=== PATIENT | male | born 1985 | race African-American/Black ===

== ENCOUNTER 2021-11-17 05:58 | Inpatient (IN) | payer OTHER ==
[2021-11-17] MEDS ORDERED: ACETAMINOPHEN 1000 MG/100 ML BAG IVPB ONE (06:04)
[2021-11-17] MEDS ORDERED: LACTATED RINGERS SOLUTION 1000 ML INFUS.BAG IV ONE (06:04)
[2021-11-17] MEDS ORDERED: morphine SULFATE 4 MG/ML VIAL IVPUSH ONE (06:04)
[2021-11-17 06:05] VITALS: BMI 30.7
[2021-11-17] MEDS ORDERED: MAG HYDROX/AL HYDROX/SIMETH 30 ML UNIT-DOSE CUP PO ONE (06:05)
[2021-11-17] MEDS ORDERED: FAMOTIDINE 20 MG/50 ML IVPB 20 MG/50 ML MG IVPB ONE ×2 (06:05→06:14)
[2021-11-17] MEDS ORDERED: morphine SULFATE 4 MG/ML VIAL ONE (06:13)
[2021-11-17] MEDS ORDERED: MAG HYDROX/AL HYDROX/SIMETH 30 ML UNIT-DOSE CUP ONE (06:14)
[2021-11-17] MEDS ORDERED: ACETAMINOPHEN INJECTION 100 ML IVPB ONE (06:14)
[2021-11-17 06:53] LABS: INR 0.97 (0.83-1.09); PROTHROMBIN TIME (PATIENT) 11.2 SEC (9.7-13.0)
[2021-11-17 06:56] LABS: ACTIVATED PTT 21.7 SECONDS (25.2-36.5)
[2021-11-17 07:01] LABS: CHLORIDE 72 mmol/L (98-107)
[2021-11-17 07:03] LABS: CALCIUM 8.1 mg/dL (8.5-10.1)
[2021-11-17 07:04] LABS: BLOOD UREA NITROGEN 21.5 mg/dL (7-18); CO2 6 mmol/L (21-32)
[2021-11-17 07:05] LABS: HEMATOCRIT 38.8 % (35.4-49); HEMOGLOBIN 11.9 GM/dL (11.7-16.9); MCHC 30.6 g/dl (32.0-35.9); MEAN CELL VOLUME 97.9 fl (80-96); MEAN PLT VOLUME 8.3 fl (7.5-11.1); PLATELET COUNT 405 10^3/uL (134-434); RBC 3.97 M/mm3 (4.00-5.60); RDW 15.4 % (11.9-15.9)
[2021-11-17] MEDS ORDERED: CALCIUM GLUCONATE 10% - 1,000 MG/10 ML VIAL IVPB ONE (07:06)
[2021-11-17 07:07] LABS: CREATININE 2.1 mg/dL (0.55-1.3); SGOT/AST 29 U/L (15-37); SGPT/ALT 39 U/L (13-61)
[2021-11-17 07:08] LABS: BILIRUBIN,TOTAL 0.9 mg/dL (0.2-1); TOT PROT 6.6 g/dl (6.4-8.2)
[2021-11-17] MEDS ORDERED: INSULIN REGULAR HUMAN 100 UNITS/ML *VIAL IVPUSH ONE (07:08)
[2021-11-17] MEDS ORDERED: DEXTROSE 50%-WATER - 25 GM/50 ML VIAL IVPUSH ONE (07:09)
[2021-11-17 07:10] LABS: ALK PHOS 101 U/L (45-117)
[2021-11-17 07:12] LABS: ANION GAP 36 MMOL/L (8-16); GLUCOSE,RANDOM 953 mg/dL (74-106); LIPASE 29383 U/L (73-393); SODIUM 114 mmol/L (136-145)
[2021-11-17] MEDS ORDERED: SODIUM CHLORIDE 0.9% 500 ML INFUS.BAG IV ONE (07:19)
[2021-11-17] MEDS ORDERED: PIPERACILLIN/TAZOB 2.25 GM 2.25 GM in DEXTROSE 5%-WATER - 50 ML IVPB ONE (07:23)
[2021-11-17] MEDS ORDERED: SODIUM CHLORIDE 2,994 ML IV ONE (07:26)
[2021-11-17] MEDS ORDERED: PIPERACILLIN/TAZOB 4.5 GM 4.5 GM in DEXTROSE 5%-WATER 100 ML IVPB ONE (07:32)
[2021-11-17] MEDS ORDERED: HYDROmorphone HCL CARPU-JECT 2 MG/1 ML DISP.SYRIN IVPUSH ONE (07:41)
[2021-11-17] MEDS ORDERED: CALCIUM GLUCONATE 10% - 1,000 MG/10 ML VIAL ONE (07:48)
[2021-11-17] MEDS ORDERED: HYDROmorphone HCl 2 MG/ML VIAL ONE (07:48)
[2021-11-17] MEDS ORDERED: DEXTROSE 50%-WATER 25 GM/50 ML DISP.SYRIN ONE (07:48)
[2021-11-17] MEDS ORDERED: PIPERACILLIN/TAZOB 4.5 GM 4.5 GM/100 ML BAG IVPB ONE (07:48)
[2021-11-17] MEDS ORDERED: INSULIN REGULAR HUMAN 100 UNITS/ML *VIAL ONE (07:57)
[2021-11-17 08:39] LABS: ANISOCYTOSIS 1+; MACROCYTOSIS 0; PLATELET ESTIMATE NORMAL
[2021-11-17 09:41] LABS: CHOLESTEROL 277 mg/dL (50-200)
[2021-11-17 09:42] LABS: LDL CHOLESTEROL (ONLY SJRH) 137 mg/dL (5-100); TRIGLYCERIDES 736 mg/dL (0-150)
[2021-11-17 09:44] LABS: HDL CHOLESTEROL 22 mg/dL (40-60)
[2021-11-17] MEDS: INSULIN REGULAR 100 UNITS in SODIUM CHLORIDE 99 ML IVPB SCH ×2 (10:00→16:24)
[2021-11-17 10:29] LABS: CHLORIDE 80 mmol/L (98-107)
[2021-11-17 10:30] LABS: CALCIUM 7.4 mg/dL (8.5-10.1)
[2021-11-17 10:31] LABS: BLOOD UREA NITROGEN 21.6 mg/dL (7-18); CO2 10 mmol/L (21-32)
[2021-11-17 10:34] LABS: CREATININE 1.7 mg/dL (0.55-1.3)
[2021-11-17 10:37] LABS: ANION GAP 26 MMOL/L (8-16); GLUCOSE,RANDOM 952 mg/dL (74-106); SODIUM 116 mmol/L (136-145)
[2021-11-17 11:53] LABS: CHLORIDE 84 mmol/L (98-107)
[2021-11-17 11:55] LABS: BLOOD UREA NITROGEN 20.3 mg/dL (7-18); CALCIUM 7.8 mg/dL (8.5-10.1); CO2 13 mmol/L (21-32)
[2021-11-17 11:59] LABS: CREATININE 1.8 mg/dL (0.55-1.3)
[2021-11-17] MEDS ORDERED: LACTATED RINGERS SOLUTION 1,000 ML/1,000 ML INFUS.BAG IV SCH (12:00)
[2021-11-17 12:02] LABS: ANION GAP 21 MMOL/L (8-16); GLUCOSE,RANDOM 848 mg/dL (74-106); SODIUM 119 mmol/L (136-145)
[2021-11-17] MEDS: MUPIROCIN 2% TOPICAL OINTMENT FOR DECOLONIZATION NS SCH ×2 (12:26→22:01)
[2021-11-17] MEDS: morphine SULFATE 4 MG/ML VIAL IVPUSH PRN ×2 (14:36→22:04)
[2021-11-17 15:58] LABS: VENOUS BASE EXCESS -7.6 mmol/L (-2-2); VENOUS O2 SATURATION 98.9 % (70-80); VENOUS PCO2 28.7 mmHg (38-52); VENOUS PH 7.374 (7.310-7.410)
[2021-11-17] MEDS ORDERED: MEROPENEM 1 GM VIAL (RESTRICTED TO ID) IVPB ONE ×2 (16:01→22:18)
[2021-11-17] MEDS ORDERED: DEXTROSE 5%-WATER 100 ML IVPB ONE ×2 (16:01→22:18)
[2021-11-17] MEDS: MEROPENEM 1 GM in DEXTROSE 5%-WATER 100 ML IVPB SCH ×2 (16:05→18:33)
[2021-11-17 16:22] LABS: CHLORIDE 93 mmol/L (98-107); SODIUM 127 mmol/L (136-145)
[2021-11-17 16:23] LABS: CALCIUM 7.8 mg/dL (8.5-10.1)
[2021-11-17 16:24] LABS: ANION GAP 16 MMOL/L (8-16); BLOOD UREA NITROGEN 16.6 mg/dL (7-18); CO2 18 mmol/L (21-32)
[2021-11-17 16:27] LABS: CREATININE 1.2 mg/dL (0.55-1.3)
[2021-11-17 16:33] LABS: GLUCOSE,RANDOM 482 mg/dL (74-106)
[2021-11-17] MEDS ORDERED: SODIUM CHLORIDE 0.45% 1,000 ML IV SCH ×2 (17:00)
[2021-11-17 17:24] LABS: CHLORIDE 94 mmol/L (98-107); SODIUM 128 mmol/L (136-145)
[2021-11-17 17:25] LABS: CALCIUM 8.2 mg/dL (8.5-10.1)
[2021-11-17 17:26] LABS: ANION GAP 13 MMOL/L (8-16); BLOOD UREA NITROGEN 15.9 mg/dL (7-18); CO2 20 mmol/L (21-32)
[2021-11-17 17:29] LABS: CREATININE 1.2 mg/dL (0.55-1.3)
[2021-11-17 17:36] LABS: GLUCOSE,RANDOM 439 mg/dL (74-106)
[2021-11-17 19:21] LABS: BLOOD UREA NITROGEN 16.1 mg/dL (7-18); CALCIUM 8.3 mg/dL (8.5-10.1)
[2021-11-17 19:24] LABS: CREATININE 1.1 mg/dL (0.55-1.3)
[2021-11-17] MEDS: CHLORHEXIDINE GLUCONATE 4% CLEANSER FOR DECOLONIZATION TP SCH (21:34)
[2021-11-17] MEDS ORDERED: DEXTROSE 5%-1/3 NS - 500 ML IV SCH (21:50)
[2021-11-17 22:12] LABS: CALCIUM 8.1 mg/dL (8.5-10.1)
[2021-11-17 22:13] LABS: BLOOD UREA NITROGEN 16.4 mg/dL (7-18)
[2021-11-17 22:16] LABS: CREATININE 0.8 mg/dL (0.55-1.3)
[2021-11-17] MEDS: DEXTROSE 5%-1/3 NS - 500 ML with POTASSIUM CHLORIDE 10 MEQ IV SCH (23:19)
[2021-11-18] MEDS ORDERED: INSULIN (NOVOLOG) ASPART 100 UNITS/ML 10ML VIAL ONE (02:10)
[2021-11-18] MEDS: MEROPENEM 1 GM in DEXTROSE 5%-WATER 100 ML IVPB SCH ×3 (02:44→18:43)
[2021-11-18 02:56] LABS: CALCIUM 7.9 mg/dL (8.5-10.1)
[2021-11-18 02:57] LABS: BLOOD UREA NITROGEN 16.7 mg/dL (7-18)
[2021-11-18 03:00] LABS: CREATININE 0.7 mg/dL (0.55-1.3)
[2021-11-18] MEDS: morphine SULFATE 4 MG/ML VIAL IVPUSH PRN (04:29)
[2021-11-18] MEDS: DEXTROSE 5%-1/3 NS - 500 ML with POTASSIUM CHLORIDE 10 MEQ IV SCH (06:00)
[2021-11-18 07:56] LABS: CHLORIDE 96 mmol/L (98-107); SODIUM 130 mmol/L (136-145)
[2021-11-18 07:59] LABS: ANION GAP 10 MMOL/L (8-16); CALCIUM 8.2 mg/dL (8.5-10.1); CO2 23 mmol/L (21-32); GLUCOSE,RANDOM 258 mg/dL (74-106); MAGNESIUM 1.9 mg/dL (1.8-2.4)
[2021-11-18 08:00] LABS: BLOOD UREA NITROGEN 14.4 mg/dL (7-18)
[2021-11-18 08:02] LABS: SGOT/AST 31 U/L (15-37); SGPT/ALT 31 U/L (13-61)
[2021-11-18 08:03] LABS: CREATININE 0.7 mg/dL (0.55-1.3)
[2021-11-18 08:04] LABS: BILIRUBIN,TOTAL 0.7 mg/dL (0.2-1); TOT PROT 5.4 g/dl (6.4-8.2)
[2021-11-18 08:05] LABS: ALK PHOS 82 U/L (45-117)
[2021-11-18 08:11] LABS: ALBUMIN 2.4 g/dl (3.4-5.0)
[2021-11-18 08:34] LABS: INR 1.17 (0.83-1.09); PROTHROMBIN TIME (PATIENT) 13.5 SEC (9.7-13.0)
[2021-11-18] MEDS: INSULIN REGULAR 100 UNITS in SODIUM CHLORIDE 99 ML IVPB SCH (09:30)
[2021-11-18] MEDS: MUPIROCIN 2% TOPICAL OINTMENT FOR DECOLONIZATION NS SCH ×2 (10:30→21:31)
[2021-11-18] MEDS ORDERED: LACTATED RINGERS SOLUTION 1,000 ML/1,000 ML INFUS.BAG IV SCH ×2 (10:45→11:17)
[2021-11-18 10:50] LABS: HEMATOCRIT 26.2 % (35.4-49); HEMOGLOBIN 9.1 GM/dL (11.7-16.9); MCHC 34.7 g/dl (32.0-35.9); MEAN CELL VOLUME 89.5 fl (80-96); MEAN PLT VOLUME 7.3 fl (7.5-11.1); PLATELET COUNT 157 10^3/uL (134-434); RBC 2.93 M/mm3 (4.00-5.60); RDW 15.4 % (11.9-15.9); WHITE BLOOD COUNT 8.7 K/mm3 (4.0-10.0)
[2021-11-18] MEDS ORDERED: DEXTROSE 5%-WATER 100 ML IVPB ONE (10:57)
[2021-11-18] MEDS ORDERED: MEROPENEM 1 GM VIAL (RESTRICTED TO ID) IVPB ONE (10:57)
[2021-11-18 11:36] LABS: ANISOCYTOSIS 1+; MACROCYTOSIS 1+; PLATELET ESTIMATE NORMAL
[2021-11-18] MEDS ORDERED: INSULIN (LEVEMIR) 100 UNITS/ML UNITS SQ SCH ×2 (11:45→22:00)
[2021-11-18] MEDS: LACTATED RINGERS SOLUTION 1,000 ML/1,000 ML INFUS.BAG IV SCH ×2 (12:00→16:45)
[2021-11-18] MEDS ORDERED: ACETAMINOPHEN 325 MG TABLET (FP) PO PRN (12:39)
[2021-11-18] MEDS: ACETAMINOPHEN 325 MG TABLET (FP) PO PRN ×2 (12:49→23:32)
[2021-11-18] MEDS: INSULIN SLIDING SCALE (NOVOLOG) 1 VIAL SQ SCH ×2 (16:49→21:30)
[2021-11-18] MEDS: CHLORHEXIDINE GLUCONATE 4% CLEANSER FOR DECOLONIZATION TP SCH (21:34)
[2021-11-18] MEDS ORDERED: PANTOPRAZOLE SODIUM 40 MG VIAL IVPUSH SCH (22:00)
[2021-11-19 00:25] VITALS: BP 139/80; PULSE 122; TEMP 98
[2021-11-19] MEDS ORDERED: INSULIN (LEVEMIR) 100 UNITS/ML UNITS SQ SCH (11:15)
== END 2021-11-19 00:32 | disposition short-term general hospital (02) | DRG 282 ==
LOC: JER 05:58 → JERBED 10:43 → JICU 11:54
PROVIDERS: ADMIT Internal Medicine Pulmonary Disease; ATTEND Internal Medicine Pulmonary Disease
DX: K86.3 Pseudocyst of pancreas (principal); K85.90 Acute pancreatitis without necrosis or infection, unspecified; E11.10 Type 2 diabetes mellitus with ketoacidosis without coma; I10 Essential (primary) hypertension; E78.5 Hyperlipidemia, unspecified; Z86.16 Personal history of COVID-19; E87.2 Acidosis; E87.1 Hypo-osmolality and hyponatremia; E78.1 Pure hyperglyceridemia; N17.9 Acute kidney failure, unspecified; E87.5 Hyperkalemia; K76.0 Fatty (change of) liver, not elsewhere classified; E66.9 Obesity, unspecified; R00.0 Tachycardia, unspecified
CPT/HCPCS: 36415; 71045-TC-FY; 74177-TC; 80048; 80053; 80061; 82150; 82550; 82803; 82962; 83036; 83605; 83690; 83735; 84484; 85025; 85610; 85730; 86140; 86850; 86900; 86901; 87040; 93005; 93010; 94010; 99291; C9803; J0131; U0003; U0005

== ENCOUNTER 2025-08-08 23:17 | Inpatient (IN) | payer OTHER ==
[2025-08-08] MEDS: LACTATED RINGERS SOLUTION 1000 ML INFUS.BAG IV ONE (23:45)
[2025-08-08 23:49] LABS: MCHC 30.5 g/dl (32.3-36.5); MEAN CELL VOLUME 74.5 fl (79.0-92.2); MEAN PLT VOLUME 10.6 fl (9.4-12.4); RDW 18.6 % (12.0-15.6)
[2025-08-08] MEDS ORDERED: CEFTRIAXONE 1 GM/50 ML BAG ONE (23:50)
[2025-08-08] MEDS ORDERED: PANTOPRAZOLE SODIUM 40 MG VIAL ONE (23:50)
[2025-08-09] MEDS: PANTOPRAZOLE SODIUM 40 MG VIAL IVPUSH ONE
[2025-08-09] MEDS: OCTREOTIDE ACETATE 50 MCG/1 ML - 1 ML VIAL IVPUSH ONE
[2025-08-09 00:07] LABS: GLUCOSE,RANDOM 133 mg/dL (74-106); TOT PROT 4.8 g/dl (6.4-8.2)
[2025-08-09 00:08] LABS: CO2 19 mmol/L (21-32)
[2025-08-09 00:09] LABS: ALK PHOS 95 U/L (40-150)
[2025-08-09] MEDS ORDERED: RAPID SEQUENCE INTUBATION KIT NR ONE ×2 (00:09→00:16)
[2025-08-09] MEDS: ROCURONIUM BROMIDE 50 MG/5 ML VIAL IV ONE ×2 (00:09→03:36)
[2025-08-09] MEDS: ETOMIDATE 20 MG/10 ML VIAL IVPUSH ONE (00:09)
[2025-08-09 00:12] LABS: CREATININE 1.00 mg/dL (0.55-1.3); SGOT/AST 37 U/L (5-34); SGPT/ALT < 6 U/L (0-55)
[2025-08-09] MEDS ORDERED: KCL 10 MEQ IVPB 10 MEQ/100 ML INFUS.BAG IVPB SCH (00:45)
[2025-08-09] MEDS ORDERED: THIAMINE HCL 200 MG/2 ML VIAL ONE (00:57)
[2025-08-09] MEDS: MIDAZOLAM IN 0.9 % SOD.CHLORID 100 MG/100 ML PLAST..BAG IVPB SCH ×2 (01:00→10:05)
[2025-08-09] MEDS ORDERED: MIDAZOLAM IN 0.9 % SOD.CHLORID 1 MG/1 ML PLAST..BAG ONE (01:11)
[2025-08-09 01:23] LABS: INR 2.16 (0.83-1.09); PROTHROMBIN TIME (PATIENT) 23.5 SEC (9.7-13.0)
[2025-08-09 01:26] LABS: ACTIVATED PTT 32.8 SECONDS (25.2-36.5)
[2025-08-09] MEDS: THIAMINE HCL 200 MG/2 ML VIAL IVPB ONE (01:39)
[2025-08-09] MEDS ORDERED: NOREPINEPHRINE 0.9 % NACL 8 MG/250 ML BAG IVPB SCH (01:45)
[2025-08-09] MEDS ORDERED: NOREPINEPHRINE 0.9 % NACL 8 MG/250 ML BAG IVPB ONE (01:58)
[2025-08-09] MEDS ORDERED: NOREPINEPHRINE BITARTRATE 4 MG/4 ML ML IV ONE (02:00)
[2025-08-09 02:01] LABS: LACTIC ACID 4.8 mmol/L (0.4-2.0)
[2025-08-09 02:38] LABS: URINE APPEARANCE CLEAR; URINE BILIRUBIN NEGATIVE (NEGATIVE); URINE COLOR YELLOW; URINE GLUCOSE (UA) NEGATIVE (NEGATIVE); URINE KETONE NEGATIVE (NEGATIVE); URINE LEUK ESTERASE NEGATIVE (NEGATIVE); URINE NITRITE NEGATIVE (NEGATIVE); URINE PROTEIN TRACE (NEGATIVE); URINE UROBILINOGEN 0.2 mg/dL (0.2-1.0)
[2025-08-09] MEDS: PROPOFOL 1,000,000 MCG/100 ML VIAL IVPB SCH (03:00)
[2025-08-09] MEDS ORDERED: DEXTROSE 50%-WATER 25 GM/50 ML DISP.SYRIN ONE ×2 (03:25→07:51)
[2025-08-09] MEDS: ETOMIDATE 40 MG/20 ML VIAL IVPUSH ONE (03:36)
[2025-08-09] MEDS: MUPIROCIN 2% TOPICAL OINTMENT FOR DECOLONIZATION NS SCH (03:49)
[2025-08-09] MEDS: FENTANYL NS IVPB 500 MCG/100 ML BAG IVPB SCH (03:52)
[2025-08-09 03:57] LABS: ARTERIAL BLD GAS O2 SATURATION 95.6 % (95-98); ARTERIAL BLOOD GAS BASE EXCESS -0.9 mmol/L (-2-2); ARTERIAL BLOOD GAS PCO2 39.20 mmHg (35-45); ARTERIAL BLOOD GAS PO2 78.3 mmHg (80-100); BG HCT 23.0 % (35.4-49); O2 CONTENT 1.03 % vol
[2025-08-09] MEDS ORDERED: ONDANSETRON 4 MG/2 ML VIAL IVPUSH PRN (04:02)
[2025-08-09 04:03] LABS: ALLENS TEST POSITIVE; VENT MODE A/C; VENT RATE 12
[2025-08-09 04:27] LABS: MCHC 32.8 g/dl (32.3-36.5); MEAN CELL VOLUME 75.9 fl (79.0-92.2); MEAN PLT VOLUME 10.5 fl (9.4-12.4); RDW 18.4 % (12.0-15.6)
[2025-08-09] MEDS: KCL 20 MEQ PREMIX BAG 20 MEQ/100 ML INFUS.BAG IVPB SCH (04:27)
[2025-08-09] MEDS: OCTREOTIDE ACETATE 200 MCG, OCTREOTIDE ACETATE 1,000 MCG in DEXTROSE 5%-WATER - 496 ML IVPB SCH (04:28)
[2025-08-09] MEDS: PHYTONADIONE 10 MG/1 ML AMP IM SCH (04:35)
[2025-08-09] MEDS: NOREPINEPHRINE BITARTRATE/D5W 8 MG/250 ML BAG IVPB SCH (04:36)
[2025-08-09] MEDS: LACTATED RINGERS SOLUTION 1000 ML INFUS.BAG IV ONE (04:37)
[2025-08-09 05:30] VITALS: BMI 26.9
[2025-08-09] MEDS: PANTOPRAZOLE SODIUM 160 MG in SODIUM CHLORIDE 290 ML IVPB SCH (06:18)
[2025-08-09] MEDS: FOLIC ACID 5 MG/1 ML IVPUSH ONE (06:18)
[2025-08-09 06:21] LABS: LACTIC ACID 3.1 mmol/L (0.4-2.0)
[2025-08-09 06:57] LABS: ARTERIAL BLD GAS O2 SATURATION 94.6 % (95-98); ARTERIAL BLOOD GAS BASE EXCESS -0.5 mmol/L (-2-2); ARTERIAL BLOOD GAS PCO2 44.50 mmHg (35-45); ARTERIAL BLOOD GAS PO2 75.3 mmHg (80-100); BG HCT 30.0 % (35.4-49); O2 CONTENT 1.34 % vol
[2025-08-09 07:06] LABS: GLUCOSE,RANDOM 170.0 mg/dL (74-106)
[2025-08-09 07:07] LABS: CO2 23.0 mmol/L (21-32)
[2025-08-09 07:12] LABS: CREATININE 0.84 mg/dL (0.55-1.3)
[2025-08-09 07:16] LABS: IMMATURE PLATELET FRACTION # 3.40 x10^3/uL; MCHC 32.3 g/dl (32.3-36.5); MEAN CELL VOLUME 78.7 fl (79.0-92.2); MEAN PLT VOLUME 10.7 fl (9.4-12.4); RDW 19.0 % (12.0-15.6)
[2025-08-09 07:18] LABS: ABSOLUTE IMMATURE GRANULOCYTES 0.44 x10^3/uL (0.0-0.031); BASOPHILS # 0.04 x10^3/uL (0.01-0.08); EOSINOPHIL % 0.1 % (0.8-7.0); EOSINOPHILS # 0.01 x10^3/uL (0.04-0.54); MCHC 32.3 g/dl (32.3-36.5); MEAN CELL VOLUME 78.6 fl (79.0-92.2); MEAN PLT VOLUME 10.1 fl (9.4-12.4); MONOCYTE # 2.62 x10^3/uL (0.30-0.82); MONOCYTE % 14.3 % (5.3-12.2); RDW 19.2 % (12.0-15.6)
[2025-08-09 07:21] LABS: GLUCOSE,RANDOM 173 mg/dL (74-106); TOT PROT 5.0 g/dl (6.4-8.2)
[2025-08-09 07:22] LABS: CO2 23 mmol/L (21-32)
[2025-08-09 07:23] LABS: ALK PHOS 78 U/L (40-150); INR 2.13 (0.83-1.09); PROTHROMBIN TIME (PATIENT) 23.2 SEC (9.7-13.0)
[2025-08-09 07:24] LABS: GLUCOSE,RANDOM 174 mg/dL (74-106)
[2025-08-09 07:25] LABS: ACTIVATED PTT 31.8 SECONDS (25.2-36.5)
[2025-08-09 07:26] LABS: CO2 23 mmol/L (21-32); CREATININE 0.83 mg/dL (0.55-1.3); SGOT/AST 38 U/L (5-34); SGPT/ALT 7 U/L (0-55)
[2025-08-09 07:30] LABS: CREATININE 0.85 mg/dL (0.55-1.3)
[2025-08-09] MEDS ORDERED: INSULIN (NOVOLOG) ASPART 100 UNITS/ML 10ML VIAL SQ ONE (07:37)
[2025-08-09] MEDS: DEXTROSE 50%-WATER - 25 GM/50 ML VIAL IVPUSH ONE (07:54)
[2025-08-09] MEDS: INSULIN REGULAR HUMAN 100 UNITS/ML *VIAL IVPUSH ONE (07:54)
[2025-08-09] MEDS: CALCIUM GLUCONATE 10% - 1,000 MG/10 ML VIAL IVPB ONE (07:55)
[2025-08-09 08:31] LABS: COCAINE, UR NEGATIVE (NEGATIVE)
[2025-08-09 08:32] LABS: OPIATES, URI NEGATIVE (NEGATIVE); PHENCYCLIDINE,URINE NEGATIVE (NEGATIVE); URINE AMPHETAMINES NEGATIVE (NEGATIVE); URINE BARBITURATES NEGATIVE (NEGATIVE); URINE BENZODIAZEPINES NEGATIVE (NEGATIVE)
[2025-08-09 08:33] LABS: METHADONE, UR NEGATIVE (NEGATIVE)
[2025-08-09 09:53] LABS: MCHC 32.8 g/dl (32.3-36.5); MEAN CELL VOLUME 80.1 fl (79.0-92.2); MEAN PLT VOLUME 10.1 fl (9.4-12.4); RDW 17.6 % (12.0-15.6)
[2025-08-09 10:00] LABS: INR 2.02 (0.83-1.09); PROTHROMBIN TIME (PATIENT) 22.2 SEC (9.7-13.0)
[2025-08-09] MEDS: PHYTONADIONE 10 MG/1 ML AMP IM ONE (10:05)
[2025-08-09] MEDS: PHYTONADIONE 10 MG/1 ML AMP IVPB ONE (10:06)
[2025-08-09 10:10] LABS: ARTERIAL BLD GAS O2 SATURATION 93.5 % (95-98); ARTERIAL BLOOD GAS BASE EXCESS 0.1 mmol/L (-2-2); ARTERIAL BLOOD GAS PCO2 34.70 mmHg (35-45); ARTERIAL BLOOD GAS PO2 63.9 mmHg (80-100); BG HCT 31.0 % (35.4-49)
[2025-08-09 10:14] LABS: VENT MODE A/C; VENT RATE 16
[2025-08-09 10:25] LABS: GLUCOSE,RANDOM 131.0 mg/dL (74-106)
[2025-08-09 10:26] LABS: TOT PROT 4.8 g/dl (6.4-8.2)
[2025-08-09 10:27] LABS: CO2 23.0 mmol/L (21-32)
[2025-08-09 10:28] LABS: ALK PHOS 76.0 U/L (40-150)
[2025-08-09 10:31] LABS: CREATININE 0.84 mg/dL (0.55-1.3); SGOT/AST 37.0 U/L (5-34); SGPT/ALT 6.0 U/L (0-55)
[2025-08-09] MEDS: MAGNESIUM SULFATE IN WATER 2 GM/50 ML IVPB IVPB ONE (10:42)
[2025-08-09] MEDS ORDERED: EPINEPHrine 1:10,000 (P-F SYR) 1 MG/10 ML DISP.SYRIN ONE (11:12)
[2025-08-09] MEDS: METOCLOPRAMIDE HCL INJECTION 10 MG/2 ML VIAL IVPUSH ONE (11:51)
[2025-08-09] MEDS ORDERED: SIMETHICONE 40 MG/0.6 ML BOTTLE ONE (12:25)
[2025-08-09] MEDS ORDERED: PIPERACILLIN/TAZOB 4.5 GM 4.5 GM in DEXTROSE 5%-WATER 100 ML IVPB SCH (13:45)
[2025-08-09] MEDS ORDERED: METOCLOPRAMIDE HCL INJECTION 10 MG/2 ML VIAL IVPUSH PRN (13:59)
[2025-08-09 15:31] LABS: MCHC 32.8 g/dl (32.3-36.5); MEAN CELL VOLUME 80.0 fl (79.0-92.2); MEAN PLT VOLUME 10.7 fl (9.4-12.4); RDW 17.3 % (12.0-15.6)
[2025-08-09 15:38] LABS: INR 1.8 (0.83-1.09); PROTHROMBIN TIME (PATIENT) 19.8 SEC (9.7-13.0)
[2025-08-09 16:00] LABS: GLUCOSE,RANDOM 107.0 mg/dL (74-106)
[2025-08-09 16:01] LABS: CO2 24.0 mmol/L (21-32); TOT PROT 5.0 g/dl (6.4-8.2)
[2025-08-09 17:28] LABS: CREATININE 0.93 mg/dL (0.55-1.3); SGOT/AST 41.0 U/L (5-34); SGPT/ALT 7.0 U/L (0-55)
[2025-08-09 17:29] LABS: ALK PHOS 85.0 U/L (40-150)
[2025-08-09 18:24] VITALS: BP 136/63; PULSE 108; RESP 16; TEMP 97.4
[2025-08-09] MEDS ORDERED: CHLORHEXIDINE GLUCONATE 4% CLEANSER FOR DECOLONIZATION TP SCH (22:00)
[2025-08-10] MEDS ORDERED: CEFTRIAXONE 2 GM in DEXTROSE 5%-WATER 100 ML IVPB SCH (10:00)
== END 2025-08-09 16:15 | disposition short-term general hospital (02) | DRG 951 ==
LOC: JER 23:17 → JERBED 08-09 00:24 → JICU 08-09 02:21
PROVIDERS: ADMIT Internal Medicine Pulmonary Disease; ATTEND Internal Medicine Pulmonary Disease
PROC: 5A1935Z Respiratory Ventilation, Less than 24 Consecutive Hours (ICD-10-PCS; 2025-08-08)
PROC: 0BH17EZ Insertion of Endotracheal Airway into Trachea, Via Natural or Artificial Opening (ICD-10-PCS; 2025-08-08)
PROC: 06L38CZ Occlusion of Esophageal Vein with Extraluminal Device, Via Natural or Artificial Opening Endoscopic (ICD-10-PCS; 2025-08-09)
PROC: 4A133B1 Monitoring of Arterial Pressure, Peripheral, Percutaneous Approach (ICD-10-PCS; 2025-08-09)
PROC: 4A133J1 Monitoring of Arterial Pulse, Peripheral, Percutaneous Approach (ICD-10-PCS; 2025-08-09)
PROC: 02HV33Z Insertion of Infusion Device into Superior Vena Cava, Percutaneous Approach (ICD-10-PCS; 2025-08-09)
PROC: B548ZZA Ultrasonography of Superior Vena Cava, Guidance (ICD-10-PCS; 2025-08-09)
PROC: 30233L1 Transfusion of Nonautologous Fresh Plasma into Peripheral Vein, Percutaneous Approach (ICD-10-PCS; 2025-08-09)
PROC: 30233N1 Transfusion of Nonautologous Red Blood Cells into Peripheral Vein, Percutaneous Approach (ICD-10-PCS; 2025-08-09)
PROC: 30233K1 Transfusion of Nonautologous Frozen Plasma into Peripheral Vein, Percutaneous Approach (ICD-10-PCS; 2025-08-09)
PROC: 03HY32Z Insertion of Monitoring Device into Upper Artery, Percutaneous Approach (ICD-10-PCS; principal; 2025-08-09 10:30)
DX: T17.800A Unspecified foreign body in other parts of respiratory tract causing asphyxiation, initial encounter (principal); R57.8 Other shock; A41.9 Sepsis, unspecified organism; I85.01 Esophageal varices with bleeding; E87.5 Hyperkalemia; I10 Essential (primary) hypertension; E78.5 Hyperlipidemia, unspecified; E11.9 Type 2 diabetes mellitus without complications; D64.9 Anemia, unspecified; Y93.89 Activity, other specified; Y92.89 Other specified places as the place of occurrence of the external cause; Y99.8 Other external cause status
CPT/HCPCS: 36415; 36430; 36600; 71045-TC-FY; 74174-TC; 80048; 80053; 80076; 80307; 81003; 82140; 82150; 82550; 82803; 82962; 83036; 83605; 83690; 83735; 84100; 84436; 84443; 84484; 85025; 85027; 85384; 85610; 85730; 86850; 86900; 86901; 86922; 87086; 87637-QW; 93005; 93010; 93306-TC; 99291; J3490; P9017; P9058